=== PATIENT | female | born 1985 ===

== ENCOUNTER 2025-05-30 11:00 | Inpatient (IN) | payer OTHER ==
[2025-05-24 12:35] VITALS: BP 137/83
[2025-05-24 12:38] LABS: COVID-19 AG NEGATIVE (NEGATIVE)
[~2025-05-30] VITALS: Ht 167.6 cm; Wt 170.1 kg
[~2025-05-30 11:00] MED LIST: ADIPEX-P37.5 M1 PO; METFORMIN HCL500 M3 PO; SYNTHROID150 MCG PO
[2025-05-30] MEDS ORDERED: METRONIDAZOLE/SODIUM CHLORIDE 500 MG/100 ML PIGGYBACK IV ONE ×2 (12:33→21:15)
[2025-05-30] MEDS ORDERED: CEFAZOLIN SODIUM 1,000 MG VIAL ONE ×2 (12:33→23:52)
[2025-05-30] MEDS ORDERED: SUGAMMADEX SODIUM 200 MG/2 ML VIAL IV ONE (19:09)
[2025-05-30] MEDS ORDERED: ONDANSETRON HCL 2 MG/ML VIAL IV PRN (21:00)
[2025-05-30] MEDS ORDERED: MORPHINE SULFATE 4 MG/ML CARTRIDGE IV PRN (21:00)
[2025-05-30] MEDS ORDERED: OxyCODONE HCL 5 MG TABLET (ROXICODONE) PO PRN (21:00)
[2025-05-30] MEDS ORDERED: RINGERS SOLUTION,LACTATED 1,000 ML IV SCH (21:00)
[2025-05-30] MEDS ORDERED: FAMOTIDINE/PF 20 MG/2 ML VIAL IV PUSH SCH (21:00)
[2025-05-30] MEDS ORDERED: CEFAZOLIN SODIUM 1,000 MG VIAL IV ONE (21:15)
[2025-05-30] MEDS ORDERED: POVIDONE-IODINE 118 ML BOTT TOP ONE (21:15)
[2025-05-30] MEDS ORDERED: FAMOTIDINE/PF 20 MG/2 ML VIAL ONE (22:01)
[2025-05-30 23:15] LABS: BASO % 0.2 % (0.1-1.2); EOS # 0.02 (0.04-0.54); EOS % 0.1 % (0.7-7.0); LYMPH # 0.92 (1.18-3.74); LYMPH % 4.9 % (19.3-53.1); MEAN PLATELET VOLUME 9.50 fl (9.4-12.4); MONO # 0.67 (0.24-0.82); MONO % 3.6 % (4.7-12.5); NEUT # 16.97 (1.56-6.13); NEUT % 90.7 % (34.0-71.1); RED CELL DISTRIBUTION WIDTH 14.8 % (11.6-14.4)
[2025-05-30 23:34] LABS: BUN CREA RATIO 18.0 (7.0-25.0); CREATININE SERUM 0.62 mg/dL (0.55-1.02); GFR 107.73; GLUCOSE FASTING 152.0 mg/dL (65-100); OSMOLALITY SERUM 284.0 MOSM/KG (275-295)
[2025-05-30] MEDS ORDERED: KETOROLAC TROMETHAMINE 30 MG VIAL ONE (23:52)
[2025-05-31] VITALS: BP 106/71; O2SAT 97
[2025-05-31] MEDS ORDERED: KETOROLAC TROMETHAMINE 30 MG VIAL IM SCH
[2025-05-31] MEDS ORDERED: CEFAZOLIN SODIUM 1,000 MG VIAL IV SCH (01:00)
[2025-05-31 06:49] LABS: BASO % 0.2 % (0.1-1.2); EOS # 0.00 (0.04-0.54); EOS % 0.0 % (0.7-7.0); LYMPH # 1.25 (1.18-3.74); LYMPH % 8.0 % (19.3-53.1); MEAN PLATELET VOLUME 9.40 fl (9.4-12.4); MONO # 0.55 (0.24-0.82); MONO % 3.5 % (4.7-12.5); NEUT # 13.75 (1.56-6.13); NEUT % 88.0 % (34.0-71.1); RED CELL DISTRIBUTION WIDTH 14.8 % (11.6-14.4)
[2025-05-31 07:50] LABS: BUN CREA RATIO 22.0 (7.0-25.0); CREATININE SERUM 0.45 mg/dL (0.55-1.02); GFR 155.93; GLUCOSE FASTING 101.0 mg/dL (65-100); OSMOLALITY SERUM 280.0 MOSM/KG (275-295)
[2025-05-31] MEDS ORDERED: ENOXAPARIN SODIUM 40 MG/0.4 ML SYRINGE SUBCUTANEO SCH (09:00)
[2025-05-31 11:13] VITALS: BP 109/71; O2SAT 96
== END 2025-05-31 15:11 | disposition home or self-care (01) | DRG 743 ==
LOC: CIR.AMB 11:00 → SURH 21:10
PROVIDERS: ADMIT Obstetrics & Gynecology Gynecologic Oncology; ATTEND Obstetrics & Gynecology Gynecologic Oncology
PROC: 0UT04ZZ Resection of Right Ovary, Percutaneous Endoscopic Approach (ICD-10-PCS; 2025-05-30)
PROC: 8E0W4CZ Robotic Assisted Procedure of Trunk Region, Percutaneous Endoscopic Approach (ICD-10-PCS; 2025-05-30)
PROC: 0UT54ZZ Resection of Right Fallopian Tube, Percutaneous Endoscopic Approach (ICD-10-PCS; principal; 2025-05-30 10:30)
DX: N83.291 Other ovarian cyst, right side (principal); R97.1 Elevated cancer antigen 125 [CA 125]; E03.9 Hypothyroidism, unspecified
CPT/HCPCS: 58661; S2900